=== PATIENT | female | born 1980 | race Caucasian/White ===

== ENCOUNTER 2024-06-12 19:17 | Inpatient (IN) | payer OTHER ==
[2024-06-12 20:07] VITALS: BMI 21.2
[2024-06-12] MEDS ORDERED: DICYCLOMINE HCL 10 MG CAPSULE PO PRN (21:24)
[2024-06-12] MEDS ORDERED: LOPERAMIDE HCL 2 MG CAPSULE PO PRN (21:24)
[2024-06-12] MEDS ORDERED: NALOXONE HCL 0.4 MG/ML VIAL IM PRN (21:24)
[2024-06-12] MEDS ORDERED: MAGNESIUM HYDROX 2400MG/30ML ORAL SUSPENSION 30 ML CUP PO PRN (21:24)
[2024-06-12] MEDS ORDERED: ACETAMINOPHEN 325 MG TABLET (FP) PO PRN (21:24)
[2024-06-12] MEDS ORDERED: BENZONATATE 200 MG CAPSULE PO PRN (21:24)
[2024-06-12] MEDS ORDERED: NALOXONE (NARCAN) HCL 4 MG/0.1 ML SPRAY NS PRN (21:24)
[2024-06-12] MEDS ORDERED: ONDANSETRON *ODT* 4 MG TABLET SL PRN (21:24)
[2024-06-12] MEDS ORDERED: BENZOCAINE/MENTHOL (CHLORASEPTIC ) LOZENGE MM PRN (21:24)
[2024-06-12] MEDS ORDERED: IBUPROFEN 400 MG TABLET (FP) PO PRN (21:24)
[2024-06-12] MEDS ORDERED: METHOCARBAMOL 500 MG TABLET PO PRN (21:24)
[2024-06-12] MEDS ORDERED: POLYETHYLENE GLYCOL (HEALTHYLAX) 3350 17 GM PACKET PO PRN (21:24)
[2024-06-12] MEDS ORDERED: guaiFENesin 600 MG TABLET.ER (FP) PO PRN (21:24)
[2024-06-12] MEDS ORDERED: diazePAM 5 MG TABLET PO PRN (21:28)
[2024-06-12] MEDS ORDERED: methaDONE HCL 10 MG TABLET PO PRN (23:25)
[2024-06-13] MEDS ORDERED: cloNIDine HCL 0.1 MG TABLET ONE (00:02)
[2024-06-13] MEDS ORDERED: MELATONIN 5 MG TABLETS ONE (00:02)
[2024-06-13] MEDS ORDERED: methaDONE HCL 10 MG TABLET (FOR DETOX USE ONLY) ONE (00:02)
[2024-06-13] MEDS ORDERED: IBUPROFEN 600 MG TABLET (FP) PO ONE (00:05)
[2024-06-13] MEDS: THIAMINE 100 MG TABLET PO SCH (00:12)
[2024-06-13] MEDS: cloNIDine HCL 0.1 MG TABLET PO SCH (00:12)
[2024-06-13] MEDS: methaDONE HCL 10 MG TABLET PO ONE (00:12)
[2024-06-13] MEDS: MELATONIN 5 MG TABLETS PO SCH (00:12)
[2024-06-13] MEDS: PRENATAL VITAMINS W/ FOLIC ACID TABLET (FP) PO SCH (09:56)
[2024-06-13] MEDS: NICOTINE 14 MG/24 HOURS TOPICAL PATCH TD SCH (09:58)
[2024-06-13] MEDS: methaDONE HCL 40 MG DISPERSABLE TABLET PO ONE (09:58)
[2024-06-13 15:04] LABS: HEMATOCRIT 34.9 % (32.4-45.2); HEMOGLOBIN 11.3 GM/dL (10.7-15.3); MCH 29.3 pg (25.7-33.7); MCHC 32.3 g/dl (32.0-36.0); MEAN CELL VOLUME 90.8 fl (80-96); MEAN PLT VOLUME 8.5 fl (7.5-11.1); PLATELET COUNT 392 10^3/uL (134-434); RBC 3.84 M/mm3 (3.60-5.2); RDW 15.3 % (11.6-15.6); WHITE BLOOD COUNT 6.7 K/mm3 (4.0-10.0)
[2024-06-13 15:09] LABS: CHLORIDE 105 mmol/L (98-107); POTASSIUM 4.1 mmol/L (3.5-5.1); SODIUM 138 mmol/L (136-145)
[2024-06-13 15:18] LABS: CALCIUM 9.2 mg/dL (8.5-10.1)
[2024-06-13 15:19] LABS: ALBUMIN 3.3 g/dl (3.4-5.0); ANION GAP 4 mmol/L (4-13); BLOOD UREA NITROGEN 12.2 mg/dL (7-18); CO2 29 mmol/L (21-32); GLUCOSE,RANDOM 90 mg/dL (74-106)
[2024-06-13 15:20] LABS: BILIRUBIN,TOTAL 0.6 mg/dL (0.2-1); TOT PROT 6.8 g/dl (6.4-8.2)
[2024-06-13 15:22] LABS: ALK PHOS 57 U/L (45-117); CREATININE 0.7 mg/dL (0.55-1.3); SGOT/AST 16 U/L (15-37); SGPT/ALT 19 U/L (13-61)
[2024-06-13 16:14] LABS: HIV INTERPRETATION NEGATIVE (NEGATIVE)
[2024-06-13] MEDS: diphenhydrAMINE HCL 25 MG CAPSULE (FP) PO PRN (21:35)
[2024-06-13] MEDS: IBUPROFEN 600 MG TABLET (FP) PO PRN (21:37)
[2024-06-14] MEDS ORDERED: cloNIDine HCL 0.1 MG TABLET PO PRN
[2024-06-14] MEDS ORDERED: methaDONE HCL 40 MG DISPERSABLE TABLET PO ONE (10:00)
[2024-06-14] MEDS: methaDONE 40 MG, methaDONE 10 MG PO ONE (10:17)
[2024-06-14] MEDS: PENICILLIN G BENZATHINE 2,400,000 UNIT/4 ML PFS IM ONE (12:52)
[2024-06-14] MEDS: MAG HYDROX/AL HYDROX/SIMETH 30 ML UNIT-DOSE CUP PO PRN (16:55)
[2024-06-14] MEDS: diphenhydrAMINE HCL 25 MG CAPSULE (FP) PO PRN (22:12)
[2024-06-14] MEDS: BISMUTH SUBSALICYLATE 524 MG/30 ML PO PRN (22:16)
[2024-06-15 06:18] VITALS: RESP 16
[2024-06-15] MEDS: methaDONE 40 MG, methaDONE 20 MG PO ONE (09:54)
[2024-06-15] MEDS ORDERED: methaDONE HCL 40 MG DISPERSABLE TABLET PO ONE (10:00)
[2024-06-15 21:18] VITALS: BP 129/60; PULSE 77; TEMP 98.6
[2024-06-15] MEDS: NICOTINE POLACRILEX 4 MG GUM BUC PRN (22:25)
[2024-06-16] MEDS: methaDONE 40 MG, methaDONE 20 MG PO ONE (09:51)
== END 2024-06-16 13:21 | disposition other institution (70) | DRG 773 ==
LOC: YASAS 19:17 → Y6N 23:29
PROVIDERS: ADMIT Allergy & Immunology; ATTEND Surgery
PROC: HZ2ZZZZ Detoxification Services for Substance Abuse Treatment (ICD-10-PCS; principal; 2024-06-12)
DX: F11.23 Opioid dependence with withdrawal (principal); F14.20 Cocaine dependence, uncomplicated; F10.20 Alcohol dependence, uncomplicated; F17.210 Nicotine dependence, cigarettes, uncomplicated; F19.282 Other psychoactive substance dependence with psychoactive substance-induced sleep disorder; F19.280 Other psychoactive substance dependence with psychoactive substance-induced anxiety disorder; F19.24 Other psychoactive substance dependence with psychoactive substance-induced mood disorder; A53.9 Syphilis, unspecified; G47.00 Insomnia, unspecified; Z62.810 Personal history of physical and sexual abuse in childhood; Z91.410 Personal history of adult physical and sexual abuse; Z63.0 Problems in relationship with spouse or partner; Z63.8 Other specified problems related to primary support group; Z86.73 Personal history of transient ischemic attack (TIA), and cerebral infarction without residual deficits; Z56.0 Unemployment, unspecified; Z59.00 Homelessness unspecified
CPT/HCPCS: 36415; 80053; 80305; 80307; 81025; 85027; 86593; 86780; 86803; 87389; 93005; 93010

== ENCOUNTER 2024-06-16 14:27 | Inpatient (IN) | payer OTHER ==
[2024-06-16 14:50] VITALS: BMI 21.9
[2024-06-16] MEDS ORDERED: BENZONATATE 200 MG CAPSULE PO PRN (18:18)
[2024-06-16] MEDS ORDERED: NALOXONE (NARCAN) HCL 4 MG/0.1 ML SPRAY NS PRN (18:18)
[2024-06-16] MEDS ORDERED: BENZOCAINE/MENTHOL (CHLORASEPTIC ) LOZENGE MM PRN (18:18)
[2024-06-16] MEDS ORDERED: BISMUTH SUBSALICYLATE 524 MG/30 ML PO PRN (18:18)
[2024-06-16] MEDS ORDERED: ACETAMINOPHEN 325 MG TABLET (FP) PO PRN (18:18)
[2024-06-16] MEDS ORDERED: MAG HYDROX/AL HYDROX/SIMETH 30 ML UNIT-DOSE CUP PO PRN (18:18)
[2024-06-16] MEDS ORDERED: NALOXONE HCL 0.4 MG/ML VIAL IM PRN (18:18)
[2024-06-16] MEDS ORDERED: guaiFENesin 600 MG TABLET.ER (FP) PO PRN (18:18)
[2024-06-16] MEDS ORDERED: IBUPROFEN 400 MG TABLET (FP) PO PRN (18:18)
[2024-06-16] MEDS ORDERED: POLYETHYLENE GLYCOL (HEALTHYLAX) 3350 17 GM PACKET PO PRN (18:18)
[2024-06-16] MEDS ORDERED: MAGNESIUM HYDROX 2400MG/30ML ORAL SUSPENSION 30 ML CUP PO PRN (18:18)
[2024-06-16] MEDS ORDERED: DICYCLOMINE HCL 10 MG CAPSULE PO PRN (18:18)
[2024-06-16] MEDS ORDERED: LOPERAMIDE HCL 2 MG CAPSULE PO PRN (18:18)
[2024-06-16] MEDS ORDERED: ONDANSETRON *ODT* 4 MG TABLET SL PRN (18:18)
[2024-06-16] MEDS: THIAMINE 100 MG TABLET PO SCH (22:14)
[2024-06-16] MEDS: IBUPROFEN 600 MG TABLET (FP) PO PRN (22:14)
[2024-06-16] MEDS: hydrOXYzine PAMOATE 25 MG CAPSULE (FP) PO PRN (22:14)
[2024-06-16] MEDS: diazePAM 5 MG TABLET PO SCH (22:14)
[2024-06-16] MEDS: MELATONIN 5 MG TABLETS PO SCH (22:15)
[2024-06-16] MEDS: cloNIDine HCL 0.1 MG TABLET PO SCH (22:15)
[2024-06-17] MEDS ORDERED: methaDONE HCL 40 MG DISPERSABLE TABLET PO ONE ×2 (10:00)
[2024-06-17] MEDS ORDERED: methaDONE 40 MG, methaDONE 20 MG PO ONE (10:00)
[2024-06-17] MEDS: PRENATAL VITAMINS W/ FOLIC ACID TABLET (FP) PO SCH (10:42)
[2024-06-17] MEDS: methaDONE 40 MG, methaDONE 10 MG PO ONE (10:43)
[2024-06-17 12:31] LABS: HEMATOCRIT 30.8 % (32.4-45.2); HEMOGLOBIN 10.4 GM/dL (10.7-15.3); MCHC 33.9 g/dl (32.0-36.0); MEAN CELL VOLUME 88.5 fl (80-96); PLATELET COUNT 299 10^3/uL (134-434); RBC 3.48 M/mm3 (3.60-5.2); RDW 14.9 % (11.6-15.6); WHITE BLOOD COUNT 3.9 K/mm3 (4.0-10.0)
[2024-06-17 12:37] LABS: CHLORIDE 105 mmol/L (98-107); POTASSIUM 4.6 mmol/L (3.5-5.1); SODIUM 138 mmol/L (136-145)
[2024-06-17 12:41] LABS: ALBUMIN 2.8 g/dl (3.4-5.0); ANION GAP 5 mmol/L (4-13); CALCIUM 9.1 mg/dL (8.5-10.1); CO2 29 mmol/L (21-32)
[2024-06-17 12:42] LABS: GLUCOSE,RANDOM 109 mg/dL (74-106)
[2024-06-17 12:44] LABS: SGPT/ALT 16 U/L (13-61)
[2024-06-17 12:45] LABS: CREATININE 0.6 mg/dL (0.55-1.3); SGOT/AST 17 U/L (15-37)
[2024-06-17 12:46] LABS: BILIRUBIN,TOTAL 0.2 mg/dL (0.2-1); TOT PROT 5.8 g/dl (6.4-8.2)
[2024-06-17 12:47] LABS: ALK PHOS 53 U/L (45-117)
[2024-06-17 13:33] LABS: HIV INTERPRETATION NEGATIVE (NEGATIVE)
[2024-06-17] MEDS: NICOTINE 21 MG/24 HOURS TOPICAL PATCH TD SCH (15:34)
[2024-06-17] MEDS: MUPIROCIN 2% TOPICAL OINTMENT 22 GM TUBE TP SCH (22:26)
[2024-06-18] MEDS ORDERED: cloNIDine HCL 0.1 MG TABLET PO PRN
[2024-06-18] MEDS: diazePAM 5 MG TABLET PO SCH (05:26)
[2024-06-18] MEDS ORDERED: methaDONE HCL 10 MG TABLET PO SCH (06:00)
[2024-06-18] MEDS: methaDONE 40 MG, methaDONE 10 MG PO SCH (09:53)
[2024-06-18] MEDS ORDERED: methaDONE 40 MG, methaDONE 20 MG PO ONE (10:00)
[2024-06-18] MEDS ORDERED: methaDONE HCL 40 MG DISPERSABLE TABLET PO ONE (10:00)
[2024-06-19] MEDS: diazePAM 5 MG TABLET PO SCH (05:34)
[2024-06-19] MEDS ORDERED: methaDONE 40 MG, methaDONE 20 MG PO ONE (10:00)
[2024-06-19] MEDS ORDERED: methaDONE HCL 40 MG DISPERSABLE TABLET PO ONE ×2 (10:00)
[2024-06-19] MEDS: diazePAM 5 MG TABLET PO PRN (10:41)
[2024-06-19] MEDS: METHOCARBAMOL 500 MG TABLET PO PRN (22:14)
[2024-06-20] MEDS: diazePAM 5 MG TABLET PO ONE (05:52)
[2024-06-20] MEDS ORDERED: methaDONE 40 MG, methaDONE 20 MG PO ONE (10:00)
[2024-06-20] MEDS ORDERED: methaDONE HCL 40 MG DISPERSABLE TABLET PO ONE (10:00)
[2024-06-20] MEDS: NICOTINE POLACRILEX 2 MG GUM BUC PRN (19:24)
[2024-06-21 08:48] VITALS: BP 101/61; PULSE 89; RESP 18; TEMP 98.3
[2024-06-21] MEDS ORDERED: methaDONE 40 MG, methaDONE 20 MG PO ONE (10:00)
[2024-06-21] MEDS ORDERED: methaDONE HCL 40 MG DISPERSABLE TABLET PO ONE (10:00)
== END 2024-06-21 12:38 | disposition other institution (70) | DRG 773 ==
LOC: YASAS 14:27 → Y3N 18:00
PROVIDERS: ADMIT Surgery; ATTEND Family Medicine Addiction Medicine
PROC: HZ2ZZZZ Detoxification Services for Substance Abuse Treatment (ICD-10-PCS; principal; 2024-06-15)
DX: F11.23 Opioid dependence with withdrawal (principal); F10.230 Alcohol dependence with withdrawal, uncomplicated; F14.20 Cocaine dependence, uncomplicated; F12.20 Cannabis dependence, uncomplicated; F17.210 Nicotine dependence, cigarettes, uncomplicated; F90.9 Attention-deficit hyperactivity disorder, unspecified type; G47.00 Insomnia, unspecified; Z62.810 Personal history of physical and sexual abuse in childhood; Z63.8 Other specified problems related to primary support group
CPT/HCPCS: 36415; 80053; 80305; 80307; 81025; 85027; 86593; 86780; 87389; 87811

== ENCOUNTER 2024-06-21 12:44 | Inpatient (IN) | payer OTHER ==
[2024-06-21] MEDS ORDERED: METHOCARBAMOL 500 MG TABLET PO PRN (13:34)
[2024-06-21] MEDS ORDERED: BENZOCAINE/MENTHOL (CHLORASEPTIC ) LOZENGE MM PRN (13:34)
[2024-06-21] MEDS ORDERED: ACETAMINOPHEN 325 MG TABLET (FP) PO PRN (13:34)
[2024-06-21] MEDS ORDERED: NALOXONE HCL 0.4 MG/ML VIAL IVPUSH PRN (13:34)
[2024-06-21] MEDS ORDERED: LOPERAMIDE HCL 2 MG CAPSULE PO PRN (13:34)
[2024-06-21] MEDS ORDERED: NALOXONE (NARCAN) HCL 4 MG/0.1 ML SPRAY NS PRN (13:34)
[2024-06-21] MEDS ORDERED: BENZONATATE 200 MG CAPSULE PO PRN (13:34)
[2024-06-21] MEDS ORDERED: MAGNESIUM HYDROX 2400MG/30ML ORAL SUSPENSION 30 ML CUP PO PRN (13:34)
[2024-06-21] MEDS ORDERED: POLYETHYLENE GLYCOL (HEALTHYLAX) 3350 17 GM PACKET PO PRN (13:34)
[2024-06-21] MEDS ORDERED: MAG HYDROX/AL HYDROX/SIMETH 30 ML UNIT-DOSE CUP PO PRN (13:34)
[2024-06-21] MEDS: PRENATAL VITAMINS W/ FOLIC ACID TABLET (FP) PO SCH (14:42)
[2024-06-21] MEDS: NICOTINE POLACRILEX 2 MG GUM BUC PRN (15:35)
[2024-06-21] MEDS: THIAMINE 100 MG TABLET PO SCH (21:38)
[2024-06-21] MEDS: MELATONIN 5 MG TABLETS PO SCH (21:38)
[2024-06-22] MEDS: guaiFENesin 600 MG TABLET.ER (FP) PO PRN (05:19)
[2024-06-22] MEDS: methaDONE 40 MG, methaDONE 10 MG PO SCH (06:11)
[2024-06-22] MEDS: NICOTINE 21 MG/24 HOURS TOPICAL PATCH TD SCH (10:22)
[2024-06-22 11:31] LABS: INR 0.89 (0.83-1.09); PROTHROMBIN TIME (PATIENT) 10.3 SEC (9.7-13.0)
[2024-06-22] MEDS: PENICILLIN G BENZATHINE 2,400,000 UNIT/4 ML PFS IM ONE (15:37)
[2024-06-22] MEDS: IBUPROFEN 600 MG TABLET (FP) PO PRN (21:13)
[2024-06-23] MEDS: hydrOXYzine PAMOATE 25 MG CAPSULE (FP) PO PRN (10:02)
[2024-06-23] MEDS: ALBUTEROL SO4 HFA INHALER IH PRN (11:07)
[2024-07-01] MEDS ORDERED: PENICILLIN G BENZATHINE 2,400,000 UNIT/4 ML PFS IM ONE (16:15)
[2024-07-01] MEDS: PENICILLIN G BENZATHINE 2,400,000 UNIT/4 ML PFS IM ONE (18:39)
[2024-07-01] MEDS: GABAPENTIN 100 MG CAPSULE PO SCH (21:22)
[2024-07-01] MEDS: BACLOFEN 10 MG TABLET (FP) PO SCH (21:23)
[2024-07-02] MEDS: methaDONE HCL 40 MG DISPERSABLE TABLET PO SCH (06:09)
[2024-07-02] MEDS: IBUPROFEN 400 MG TABLET (FP) PO PRN (21:53)
[2024-07-04] MEDS: CHOLECALCIFEROL (VIT D3) 400 UNIT (10 MCG) TABLET PO SCH (16:22)
[2024-07-06] MEDS: methaDONE HCL 10 MG TABLET PO SCH (06:15)
[2024-07-09] MEDS ORDERED: methaDONE HCL 10 MG TABLET (FOR DETOX USE ONLY) PO ONE (06:00)
[2024-07-09] MEDS: cloNIDine HCL 0.1 MG TABLET PO SCH (06:08)
[2024-07-09] MEDS: methaDONE HCL 10 MG TABLET PO ONE (06:11)
[2024-07-09] MEDS: BUPRENORPHINE/NALOXONE 0.5 MG/0.125 MG FILM SL ONE ×2 (14:55→22:22)
[2024-07-10] MEDS: BUPRENORPHINE/NALOXONE 0.5 MG/0.125 MG FILM SL SCH (10:12)
[2024-07-11] MEDS: methaDONE HCL 10 MG TABLET (FOR DETOX USE ONLY) PO ONE (06:49)
[2024-07-11] MEDS: BUPRENORPHINE/NALOXONE 2 MG/0.5 MG FILM PACKET SL SCH (10:29)
[2024-07-12] MEDS: BUPRENORPHINE/NALOXONE 4 MG/1 MG FILM PACKET SL SCH (09:53)
[2024-07-13] MEDS: methaDONE HCL 10 MG TABLET PO ONE (07:11)
[2024-07-13] MEDS: methaDONE HCL 10 MG TABLET (FOR DETOX USE ONLY) PO ONE (07:12)
[2024-07-13] MEDS: BUPRENORPHINE/NALOXONE 8 MG/2 MG FILM PACKET SL SCH (10:01)
[2024-07-14] MEDS: BUPRENORPHINE/NALOXONE 8 MG/2 MG FILM PACKET SL SCH (09:37)
[2024-07-17 07:09] VITALS: RESP 17; TEMP 97.6
[2024-07-17] MEDS: NALOXONE (NYS OPIOID OVERDOSE PROGRAM) 4 MG/0.1 ML SPRAY NS PRN (10:43)
[2024-07-17 11:01] VITALS: BP 122/68; PULSE 88
== END 2024-07-17 10:47 | disposition home or self-care (01) | DRG 772 ==
LOC: YASAS 12:44 → Y5N 12:46
PROVIDERS: ADMIT Psychiatry & Neurology Pain Medicine; ATTEND Psychiatry & Neurology Pain Medicine
PROC: HZ42ZZZ Group Counseling for Substance Abuse Treatment, Cognitive-Behavioral (ICD-10-PCS; principal; 2024-06-21)
DX: F11.20 Opioid dependence, uncomplicated (principal); F14.20 Cocaine dependence, uncomplicated; F10.20 Alcohol dependence, uncomplicated; F17.210 Nicotine dependence, cigarettes, uncomplicated; F19.280 Other psychoactive substance dependence with psychoactive substance-induced anxiety disorder; F19.24 Other psychoactive substance dependence with psychoactive substance-induced mood disorder; G47.00 Insomnia, unspecified; J44.9 Chronic obstructive pulmonary disease, unspecified; Z86.19 Personal history of other infectious and parasitic diseases; Z86.73 Personal history of transient ischemic attack (TIA), and cerebral infarction without residual deficits; Z59.00 Homelessness unspecified
CPT/HCPCS: 36415; 82140; 82306; 82652; 83735; 85610; 87635; J0475